=== PATIENT | female | born 1985 | race Caucasian/White ===

== ENCOUNTER 2016-12-08 20:52 | Emergency (ER) | payer BC, MEDICAID, OTHER ==
[2016-12-08] MEDS ORDERED: LORazepam 1 MG Tab PO ONE (21:16)
--- NOTE | 2016-12-08 21:24 | EDM.PDOC ---
ED HISTORY OF PRESENT ILLNESS - General Chief Complaint: Respiratory Problem Stated Complaint: REACTION TO MEDS, SOB Time Seen by Provider: 12/08/16 21:10 Source: Reports: Patient, Old records History Limitations: Reports: No limitations - History of Present Illness INITIAL COMMENTS - FREE TEXT/NARRATIVE: 31 yo female with a pHx of reflex sympathetic dystrophy of her LLE and fibromyalgia was seen in the [facility] ED earlier today for SOB. She had a w/u there that included UA, CBC, CMP, EKG, CXR, d-dimer, and Trop all of which was WNL's. She was tx'd while there with diphenhydramine 50 mg, albuterol neb, and 0.5 mg of Ativan IV. With there interventions she left feeling better. She was well until she climbed a flight of stairs after returning home. She called back there due to a return of her sx's and was advised to come to our ER as she lives locally. She was not sent home with any Rx's from the ED today. Was tx'd in the ED there about 6 hrs ago. She denies fever, new calf pain or swelling, cough, or pleuritic pain. Feels some throat tightness and SOB now. Has noticed a little blotchy skin rash. Symptom Onset Date: 12/08/16 Symptom Onset Time: 14:00 Timing/Duration: Reports: Minutes:, Intermittent Severity: moderate Location, General: Reports: chest Quality: Reports: Other (No pain.) Improves with: Reports: Medication (Got better with 3 different meds in the [place] ED earlier today. Uncertain which of these meds actually made her better?) Context, General: Reports: Other (Onset earlier today following lunch in [place]. ) Associated Symptoms: Reports: cough (occasional, not new today. ), rash ( blotchiness, no raised or urticarial rashes. ), shortness of breath. 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 ) - Related Data Allergies/ADRs: Allergies Allergy/AdvReac Type Severity Reaction Status Date / Time amoxicillin [Amoxicillin] Allergy Mild UNKNOWN Verified 12/23/14 15:09 clindamycin Allergy Mild UNKNOWN Verified 12/08/16 21:09 Penicillins Allergy Mild UNKNOWN Verified 12/08/16 21:09 Home Meds: Home Meds Hydrocodone/Acetaminophen [Hydrocodon-Acetaminophn 10-325] 1 tab PO Q4HR PRN 04/25 [History] Ranitidine [Zantac] 150 mg PO BID 04/23/16 [History] LORazepam 0.5 mg PO TID PRN #7 tablet 12/08/16 [Rx] Pregabalin [Lyrica] 25 mg PO DAILY 12/08/16 [History] Social & Family History - Tobacco Use Smoking Status *Q: Never Smoker Years of Tobacco use: 10 Used Tobacco, but Quit: No Second Hand Smoke Exposure: No - Caffeine Use Caffeine Use: Reports: Coffee, Soda - Alcohol Use Days Per Week of Alcohol Use: 0 - Recreational Drug Use Recreational Drug Use: No ED ROS GENERAL - Review of Systems Review Of Systems: See Below Constitutional: Reports: no symptoms HEENT: Reports: No symptoms Respiratory: Reports: shortness of breath, cough. Denies: wheezing, pleuritic chest pain, sputum, hemoptysis Cardiovascular: Reports: No symptoms Endocrine: Reports: no symptoms GI/Abdominal: Reports: No symptoms : Reports: no symptoms Musculoskeletal: Reports: no symptoms Skin: Reports: no symptoms Neurological: Reports: no symptoms Psychiatric: Reports: No symptoms ED EXAM, GENERAL - Physical Exam Exam: See Below Exam Limited By: No limitations General Appearance: alert, WD/WN, no apparent distress Eye Exam: bilateral eye: normal inspection Ears: normal external exam, normal canal, hearing grossly normal Ear Exam: bilateral ear: auricle normal, canal normal Nose: normal inspection, normal mucosa, no blood Throat/Mouth: Normal inspection, Normal lips, Normal teeth, Normal gums, Normal oropharynx, Normal voice, No airway compromise Head: atraumatic, normocephalic Neck: normal inspection, supple, non-tender Respiratory/Chest: no respiratory distress, lungs clear, normal breath sounds, no accessory muscle use, chest non-tender Cardiovascular: regular rate, rhythm, no edema Back Exam: normal inspection Extremities: normal inspection, normal range of motion, non-tender, no pedal edema Neurological: alert, oriented, CN II-XII intact, normal cognition Psychiatric: normal affect, anxious (mild) Skin Exam: Warm, Dry, Intact, Normal color, No rash Lymphatic: no adenopathy Course - Vital Signs Text/Narrative:: Lorazepam 1 mg po-much improved after this med Last Recorded V/S: Last Vital Signs Temp 37.2 C 12/08/16 21:26 Pulse 83 12/08/16 21:45 Resp 14 12/08/16 21:45 BP 135/89 12/08/16 21:26 Pulse Ox 97 12/08/16 21:45 - Orders/Labs/Meds Meds: Medications Discontinued Medications Generic Name Dose Route Start Last Admin Trade Name Freq PRN Reason Stop Dose Admin Lorazepam 1 mg 12/08/16 21:16 12/08/16 21:23 Ativan PO 12/08/16:17 1 mg ONETIME ONE Administration Departure - Departure Time of Disposition: 22:00 Disposition: Home, Self-Care 01 Condition: good Clinical Impression: Anxiety Prescriptions: LORazepam 0.5 mg PO TID PRN #7 tablet PRN Reason: Anxiety Referrals: Kwasi Gupta MD [Primary Care Provider] - Forms: ED Department Discharge Additional Instructions: Use lorazepam up to 3 times a day for anxiety as needed. No driving when taking this med. See your regular doctor later this week for recheck.
[2016-12-08 21:43] VITALS: BP 135/89
[2016-12-08] MEDS ORDERED: LORazepam 0.5 MG Tab PO ONE (21:55)
== END 2016-12-08 22:09 | disposition home or self-care (01) ==
LOC: FB.ED 20:52
DX: F41.9 Anxiety disorder, unspecified (principal); Z88.0 Allergy status to penicillin; Z88.1 Allergy status to other antibiotic agents; Z79.899 Other long term (current) drug therapy
CPT/HCPCS: 99285; A9270

== ENCOUNTER 2017-01-24 12:59 | Emergency (ER) | payer MEDICAID ==
[2017-01-24 13:14] VITALS: BP 125/85
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
== END 2017-01-24 14:22 | disposition home or self-care (01) ==
LOC: FB.ED 12:59
DX: G90.522 Complex regional pain syndrome I of left lower limb (principal); K30 Functional dyspepsia
CPT/HCPCS: 99282

== ENCOUNTER 2017-04-02 07:24 | Day surgery (SDC) | payer MEDICAID ==
[2017-04-02] MEDS ORDERED: Lactated Ringers 1,000 ML IV SCH (07:30)
[2017-04-02] MEDS ORDERED: Propofol 200 MG/20 ML SDV IV ONE (09:30)
[2017-04-02] MEDS ORDERED: Lidocaine 2% 100 MG/5 ML Syringe IVPUSH ONE (09:30)
[2017-04-02] MEDS ORDERED: Midazolam 1 MG/ML 2 ML SDV IV ONE (09:30)
--- NOTE | 2017-04-02 09:53 | PCM.OPNOTE ---
- General Post-Op/Procedure Note Date of Surgery/Procedure: 04/02/17 Operative Procedure(s): egd with biopsy Findings: gastritis gastric polyp esophagitis Pre Op Diagnosis: epigastric abd pain nausea Post-Op Diagnosis: gastritis. gastric polyp. esophagitis Anesthesia Technique: [facility] [place] Primary Surgeon: Tomer Albert Anesthesia Provider: Bailee Caldwell Pathology: stomach and distal esophagus Complications: None Condition: Good Free Text/Narrative:: see dictation
--- NOTE | 2017-04-02 12:15 | OR ---
DATE OF OPERATION: 04/02/2017 SURGEON: Tomer Albert MD PROCEDURE PERFORMED: Esophagogastroduodenoscopy with cold forceps biopsy. PREOPERATIVE DIAGNOSIS: Nausea and epigastric abdominal pain. POSTOPERATIVE DIAGNOSIS: Gastritis, esophagitis and hyperplastic polyp. INDICATIONS FOR PROCEDURE: This is a 31-year-old white female, who is referred with the above-mentioned complaints. She was offered and accepted EGD. DESCRIPTION OF OPERATION: After an excellent IV sedation was administered, the bite block was inserted. Flexible endoscope was passed without difficulty down the patient's esophagus into the stomach. Stomach was insufflated. Scope was passed through the pylorus to the second portion of the duodenum and slowly withdrawn. The following findings were noted. Duodenum was unremarkable. Stomach demonstrated diffuse mild gastritis as well as hyperplastic polyp. Random biopsies of the gastric mucosa were taken and the polyp was biopsied and submitted in #1 container. Distal esophagus, erythema, biopsies were taken. The remainder of the esophageal exam was unremarkable. The stomach was deflated, scope was removed. The patient tolerated the procedure well and was taken to recovery in good condition. /[id number] /MODL
[2017-04-02 12:39] VITALS: BP 115/66
== END 2017-04-02 11:39 | disposition home or self-care (01) ==
LOC: FB.SDS 07:24
PROVIDERS: ATTEND Surgery
PROC: 0DB68ZX Excision of Stomach, Via Natural or Artificial Opening Endoscopic, Diagnostic (ICD-10-PCS; principal; 2017-04-02)
DX: K20.8 Other esophagitis (principal); K31.7 Polyp of stomach and duodenum; M79.7 Fibromyalgia; F41.9 Anxiety disorder, unspecified; F33.8 Other recurrent depressive disorders; Z79.1 Long term (current) use of non-steroidal anti-inflammatories (NSAID); Z79.899 Other long term (current) drug therapy; Z87.891 Personal history of nicotine dependence
CPT/HCPCS: 43239; 81025; 88305; 88342; J2250; J2704; J7120

== ENCOUNTER 2020-10-02 08:42 | Day surgery (SDC) | payer BC, MEDICAID ==
[2020-10-02] MEDS ORDERED: Propofol 200 MG/20 ML SDV IV ONE (08:43)
[2020-10-02] MEDS ORDERED: Sodium Chloride 0.9% 10 ML Syringe FLUSH PRN (09:00)
[2020-10-02] MEDS ORDERED: Lactated Ringers 1,000 ML IV SCH (09:00)
--- NOTE | 2020-10-02 11:12 | PCM.OPNOTE ---
- General Post-Op/Procedure Note Date of Surgery/Procedure: 10/02/20 Operative Procedure(s): egd with bx Findings: gastroduodenitis esophagitis fundic gland hyperplasia Pre Op Diagnosis: hx of chronic gastritis gerd. abd pain Post-Op Diagnosis: gastroduodenitis. esophagitis. fundic gland hyperplasia Anesthesia Technique: [facility] [place] Primary Surgeon: Tomer Albert Anesthesia Provider: Aquilino Rasmussen Pathology: stomach duodenum and esophagus Complications: None Condition: Good Free Text/Narrative:: see dictation [id number]
[2020-10-02 11:16] VITALS: PULSE 70
[2020-10-02 11:58] VITALS: BP 115/71
--- NOTE | 2020-10-02 12:06 | OR ---
DATE OF OPERATION: 10/02/2020 SURGEON: Tomer Albert MD PROCEDURE PERFORMED: Esophagogastroduodenoscopy with cold forceps biopsy. PREOPERATIVE DIAGNOSES: History of epigastric abdominal pain and reflux as well as a known history of chronic gastritis. POSTOPERATIVE DIAGNOSES: Gastroduodenitis, fundic gland hyperplasia, and esophagitis. INDICATIONS FOR PROCEDURE: This is a 35-year-old white female who has been scoped by me in the past and diagnosed with esophagitis as well as chronic gastritis. She recently underwent a workup for a cerebral aneurysm and was noted to have one. Interestingly, her father apparently has from this disease and her mother has been treated for this condition as well. She is scheduled for treatment, which will require a period of anticoagulation and as a result of this she presented to me for clearance to be able to undergo this anticoagulation given her past history. There was some confusion as to whether or not she had a gastric ulcer versus gastritis. However, given some epigastric tenderness in her complaints and the fact that she had been taken off her proton pump inhibitor, it was felt that the most prudent course would be to actually do an upper endoscopy. DESCRIPTION OF OPERATION: After an excellent IV sedation was administered, the bite block was inserted. The flexible endoscope was passed down the esophagus into the stomach. Stomach was insufflated, scope passed through the pylorus to the second portion of the duodenum and slowly withdrawn. The following findings were noted. The 2nd portion of duodenum was unremarkable. First portion of the duodenum demonstrates some mild duodenitis. There was no evidence of ulcer that we were able to ascertain. Multiple biopsies were taken. On withdrawing the scope into the stomach, there was some diffuse gastritis with some fundic gland hyperplasia visible. Multiple biopsies were taken of the stomach, mucosa, and in addition the fundic gland hyperplasia was biopsied as well. This was submitted in a separate container. The distal esophagus just above the GE junction demonstrated some erythema as well and several biopsies were taken. The remainder of the esophageal exam was unremarkable. At this point, essentially I do not see anything that would preclude anticoagulation. I will be placing her on Protonix 40 mg to be taken daily as well as Carafate to be taken 30 minutes before meals and at bedtime. Results will be sent to the patient by letter. /[id number] /ISELAL
== END 2020-10-02 11:48 | disposition home or self-care (01) ==
LOC: FB.SDS 08:42
PROVIDERS: ATTEND Surgery
DX: K29.50 Unspecified chronic gastritis without bleeding (principal); K31.89 Other diseases of stomach and duodenum; K31.7 Polyp of stomach and duodenum; K20.90 Esophagitis, unspecified without bleeding; K29.80 Duodenitis without bleeding; F41.1 Generalized anxiety disorder; J45.909 Unspecified asthma, uncomplicated; Z01.812 Encounter for preprocedural laboratory examination; Z20.828 Contact with and (suspected) exposure to other viral communicable diseases; Z79.899 Other long term (current) drug therapy; Z98.890 Other specified postprocedural states; Z88.0 Allergy status to penicillin; Z88.5 Allergy status to narcotic agent
CPT/HCPCS: 00731-QZ; J2704; J7120; U0002

== ENCOUNTER 2022-07-20 16:34 | Emergency (ER) | payer BC, MEDICAID ==
[2022-07-20] MEDS ORDERED: Ketorolac 30 MG/ML SDV IM ONE (16:55)
[2022-07-20] MEDS ORDERED: Ondansetron 4 MG Tab.DIS PO ONE (16:56)
[2022-07-20] MEDS ORDERED: Acetaminophen 500 MG Tab PO ONE (16:57)
[2022-07-20 19:17] VITALS: BP 140/95; PULSE 94
== END 2022-07-20 17:45 | disposition home or self-care (01) ==
LOC: FB.ED 16:34
DX: S93.402A Sprain of unspecified ligament of left ankle, initial encounter (principal); Z88.0 Allergy status to penicillin; Z88.1 Allergy status to other antibiotic agents; X50.1XXA Overexertion from prolonged static or awkward postures, initial encounter
CPT/HCPCS: 73610; 96372; 99281; 99283; A9270; J1885; Q0162